=== PATIENT | female | born 1985 | race Caucasian/White ===

== ENCOUNTER 2018-08-24 09:05 | Emergency (ER) | payer OTHER ==
[~2018-08-24] VITALS: Ht 160 cm; Wt 90.0 kg
[~2018-08-24 09:05] MED LIST: CLIN300C85 PO; NO HOME MEDS; azythromycin PO
[2018-08-24 09:07] VITALS: BP 153/82
[2018-08-24] MEDS ORDERED: NAPR-56 PO (09:24)
[2018-08-24] MEDS ORDERED: PENI250T2 PO (09:24)
== END 2018-08-24 09:40 | disposition home or self-care (01) ==
LOC: ER 09:06
DX: K08.89 Other specified disorders of teeth and supporting structures (principal); F12.90 Cannabis use, unspecified, uncomplicated; Z79.2 Long term (current) use of antibiotics
CPT/HCPCS: 99283

== ENCOUNTER 2018-09-13 04:06 | Emergency (ER) | payer OTHER ==
[~2018-09-13] VITALS: Ht 160 cm; Wt 86.2 kg
[~2018-09-13 04:06] MED LIST changes: +NAPR-56 PO
[2018-09-13 04:11] VITALS: BP 149/94
[2018-09-13] MEDS ORDERED: HYDROcodone/acetaminophen 10/325mg tab PO ONE (04:30)
[2018-09-13] MEDS ORDERED: ibuprofen tablet 400 MG TABLET PO ONE (04:30)
[2018-09-13] MEDS ORDERED: IBUP-1986 PO (04:33)
[2018-09-13] MEDS ORDERED: HYDR-4383 PO (04:33)
== END 2018-09-13 04:43 | disposition home or self-care (01) ==
LOC: ER 04:07
DX: M62.838 Other muscle spasm (principal); M25.512 Pain in left shoulder; F12.90 Cannabis use, unspecified, uncomplicated; Z98.890 Other specified postprocedural states; Z79.899 Other long term (current) drug therapy
CPT/HCPCS: 99283

== ENCOUNTER 2019-11-11 10:06 | Emergency (ER) | payer OTHER ==
[~2019-11-11] VITALS: Ht 160 cm; Wt 85.4 kg
[~2019-11-11 10:06] MED LIST changes: +CLIN-90 PO; -CLIN300C85 PO; +HYDR-4383 PO; +IBUP-1986 PO; -NAPR-56 PO
[2019-11-11] MEDS ORDERED: IBUP-1984 PO (10:56)
[2019-11-11] MEDS ORDERED: PENI500T2 PO (10:56)
[2019-11-11 11:07] VITALS: BP 129/71
[2019-11-12] MEDS ORDERED: HYDR-4383 PO (16:30)
== END 2019-11-11 11:08 | disposition home or self-care (01) ==
LOC: ER 10:06
DX: K05.319 Chronic periodontitis, localized, unspecified severity (principal); F12.90 Cannabis use, unspecified, uncomplicated; Z98.890 Other specified postprocedural states; Z79.899 Other long term (current) drug therapy; Z79.2 Long term (current) use of antibiotics
CPT/HCPCS: 99283

== ENCOUNTER 2019-11-12 13:17 | Emergency (ER) | payer OTHER ==
[~2019-11-12] VITALS: Ht 165.1 cm; Wt 85.0 kg
[~2019-11-12 13:17] MED LIST changes: +IBUP-1984 PO; +PENI500T2 PO
[2019-11-12] MEDS ORDERED: morphine 4 MG/ML inj SYRINge IV ONE (14:15)
[2019-11-12] MEDS ORDERED: normal saline 1000ML IV soln IVB ONE (14:45)
[2019-11-12 14:52] LABS: BASOPHILS % (AUTO) 0.3 % (0-1); EOSINOPHILS # (AUTO) 0.1 X10'3 (0-0.9); HEMATOCRIT 39.8 % (35.0-45.0); HEMOGLOBIN 13.6 g/dl (12.0-16.0); LYMPHOCYTES # (AUTO) 1.4 X10'3 (1.1-4.8); LYMPHOCYTES % (AUTO) 12.1 % (21-51); MEAN CORPUSCULAR HEMOGLOBIN 30.5 PG (27.0-31.0); MEAN CORPUSCULAR HGB CONC 34.1 g/dL (33.0-36.5); MEAN CORPUSCULAR VOLUME 89.4 FL (78-98); MEAN PLATELET VOLUME 8.4 FL (7.4-10.4); MONOCYTES # (AUTO) 0.6 X10'3 (0-0.9); MONOCYTES % (AUTO) 5.5 % (2-12); NEUTROPHILS # (AUTO) 9.2 X10'3 (1.8-7.7); NEUTROPHILS % (AUTO) 81.1 % (42-75); PLATELET COUNT 264 X10'3 (140-440); RED BLOOD COUNT 4.45 X10'6 (4.20-5.60); RED CELL DISTRIBUTION WIDTH 13.3 % (11.5-14.5); WHITE BLOOD COUNT 11.3 X10'3 (4.5-11.0)
[2019-11-12] MEDS ORDERED: clindamycin 300mg/D5W 50mL 50 ML IV ONE (14:55)
[2019-11-12 15:08] LABS: ALANINE AMINOTRANSFERASE 23 U/L (12-78); ALBUMIN 3.9 G/DL (3.4-5.0); ALKALINE PHOSPHATASE 58 IU/L (46-116); ANION GAP 9 (8-16); ASPARTATE AMINO TRANSFERASE 14 U/L (10-37); BILIRUBIN,TOTAL 0.5 MG/DL (0.1-1.0); BLOOD UREA NITROGEN 6 MG/DL (7-18); BUN/CREATININE RATIO 8.6 (6.6-38.0); CALCIUM 8.7 MG/DL (8.5-10.1); CHLORIDE 108 MMOL/L (99-107); GLUCOSE 89 MG/DL (70-104); SODIUM 142 MMOL/L (135-145); TOTAL CARBON DIOXIDE 25.5 MMOL/L (24-32); TOTAL PROTEIN 7.7 G/DL (6.4-8.2); eGFR > 90 ML/MIN
[2019-11-12] MEDS ORDERED: iohexol 300mg/ml 100ml inj. ONE (15:28)
[2019-11-12] MEDS ORDERED: methylPREDNISolone sod succ 125mg/2ml vial IV ONE (16:00)
[2019-11-12] MEDS ORDERED: HYDR-4383 PO (16:30)
--- NOTE | 2019-11-12 16:53 | NUR ---
PT ABLE TO DRINK JUICE WITH OUT PAIN. PT ABLE TO EAT 2 CRACKERS SHE STATES IT HURTS TO CHEW. INSTRUCTED PT TO EAT SOFT FOODS AND SOUP SHE STATES UNDERSTANDING. PT STATES PAIN AND SWELLING ARE IMPROVED.
[2019-11-12 16:55] VITALS: BP 112/81
[2019-11-12] MEDS ORDERED: clindamycin 300mg/D5W 50mL 50 ML IV SCH (20:00)
== END 2019-11-12 17:10 | disposition home or self-care (01) ==
LOC: ER 13:18
DX: K04.7 Periapical abscess without sinus (principal); F12.90 Cannabis use, unspecified, uncomplicated; F10.99 Alcohol use, unspecified with unspecified alcohol-induced disorder; Z98.890 Other specified postprocedural states; Z79.899 Other long term (current) drug therapy; Y90.9 Presence of alcohol in blood, level not specified
CPT/HCPCS: 36415; 70491; 80053; 85025; 85610; 96365; 96375; 99284; J2270; J2930; J7030; Q9967; J3490

== ENCOUNTER 2020-08-07 19:39 | Emergency (ER) | payer OTHER ==
[~2020-08-07] VITALS: Ht 160 cm; Wt 81.8 kg
[~2020-08-07 19:39] MED LIST changes: -CLIN-90 PO; +CLIN-97 PO; -IBUP-1984 PO; -PENI500T2 PO
[2020-08-07 19:40] VITALS: BP 132/68
[2020-08-07] MEDS ORDERED: ketorolac tromethamine 15mg/ml inj. IM ONE (20:45)
--- NOTE | 2020-08-07 20:57 | NUR ---
pt to xray via wheelchair
== END 2020-08-07 21:41 | disposition home or self-care (01) ==
LOC: ER 19:41
DX: S80.911A Unspecified superficial injury of right knee, initial encounter (principal); F12.90 Cannabis use, unspecified, uncomplicated; Z98.890 Other specified postprocedural states; Z79.2 Long term (current) use of antibiotics; Z79.899 Other long term (current) drug therapy; X58.XXXA Exposure to other specified factors, initial encounter; Y93.89 Activity, other specified; Y92.89 Other specified places as the place of occurrence of the external cause; Y99.8 Other external cause status
CPT/HCPCS: 73564; 96372; 99283; J1885

== ENCOUNTER → 2020-12-23 | Emergency (ER) | payer OTHER ==
[~2020-12-23] VITALS: Ht 160 cm; Wt 82.7 kg
[~2020-12-23] MED LIST changes: +PENI250T2 PO; +[UNRECOGNIZED DRUG - CODE] PO
[2020-12-23 13:09] VITALS: BP 155/102
== END | disposition home or self-care (01) ==
LOC: ER 12:51
DX: K04.7 Periapical abscess without sinus (principal); F12.90 Cannabis use, unspecified, uncomplicated; Z72.89 Other problems related to lifestyle; Z98.890 Other specified postprocedural states; Z79.899 Other long term (current) drug therapy
CPT/HCPCS: 99283

== ENCOUNTER 2020-12-24 19:18 | Emergency (ER) | payer OTHER ==
[~2020-12-24] VITALS: Ht 160 cm; Wt 81.8 kg
[~2020-12-24 19:18] MED LIST changes: -[UNRECOGNIZED DRUG - CODE] PO
[2020-12-24 19:24] VITALS: BP 176/90
[2020-12-24] MEDS ORDERED: dexamethasone sod phosphate 10mg/ml inj IM STA (19:52)
[2020-12-24] MEDS ORDERED: clindamycin 150mg capsule PO ONE (19:55)
[2020-12-24] MEDS ORDERED: [UNRECOGNIZED DRUG - CODE] PO (19:55)
== END 2020-12-24 20:15 | disposition home or self-care (01) ==
LOC: ER 19:19
DX: L03.211 Cellulitis of face (principal); F12.90 Cannabis use, unspecified, uncomplicated; Z72.89 Other problems related to lifestyle; Z98.890 Other specified postprocedural states; Z79.899 Other long term (current) drug therapy
CPT/HCPCS: 96372; 99283; J1100

== ENCOUNTER 2021-09-27 16:39 | Emergency (ER) | payer OTHER ==
[~2021-09-27] VITALS: Ht 160 cm; Wt 72.7 kg
[~2021-09-27 16:39] MED LIST changes: -PENI250T2 PO
[2021-09-27 16:53] VITALS: BP 152/103
[2021-09-27] MEDS ORDERED: morphine 4 MG/ML inj SYRINge IM ONE (17:15)
[2021-09-27] MEDS ORDERED: ketorolac tromethamine 15mg/ml inj. IM ONE (17:15)
[2021-09-27] MEDS ORDERED: ondansetron 4mg rapidly disintigrating tab PO ONE (17:15)
[2021-09-27] MEDS ORDERED: ORPH100T2 PO (18:04)
[2021-09-27] MEDS ORDERED: IBUP-1984 PO (18:04)
[2021-09-27] MEDS ORDERED: DIAZ5TAB22 PO (18:04)
== END 2021-09-27 18:59 | disposition home or self-care (01) ==
LOC: ER 16:40
DX: M25.511 Pain in right shoulder (principal); M54.2 Cervicalgia; F12.90 Cannabis use, unspecified, uncomplicated; Z98.890 Other specified postprocedural states; Z72.89 Other problems related to lifestyle; Z88.0 Allergy status to penicillin; Z91.030 Bee allergy status; Z79.2 Long term (current) use of antibiotics; Z79.899 Other long term (current) drug therapy
CPT/HCPCS: 72125; 73030; 96372; 99284; J1885; J2270

== ENCOUNTER 2022-09-11 17:22 | Emergency (ER) | payer OTHER ==
[~2022-09-11] VITALS: Ht 160 cm; Wt 77.4 kg
[~2022-09-11 17:22] MED LIST changes: +ORPH100T2 PO
[2022-09-11 17:40] VITALS: BP 133/94
[2022-09-11 18:53] LABS: BASOPHILS % (AUTO) 0.5 % (0-1); EOSINOPHILS # (AUTO) 0.1 X10'3 (0-0.9); EOSINOPHILS % (AUTO) 1.4 % (0-6); HEMATOCRIT 39.9 % (35.0-45.0); HEMOGLOBIN 13.5 g/dl (12.0-16.0); LYMPHOCYTES # (AUTO) 2.1 X10'3 (1.1-4.8); LYMPHOCYTES % (AUTO) 21.6 % (21-51); MEAN CORPUSCULAR HEMOGLOBIN 30.9 PG (27.0-31.0); MEAN CORPUSCULAR HGB CONC 33.8 g/dL (33.0-36.5); MEAN CORPUSCULAR VOLUME 91.4 FL (78-98); MEAN PLATELET VOLUME 8.3 FL (7.4-10.4); MONOCYTES # (AUTO) 0.6 X10'3 (0-0.9); MONOCYTES % (AUTO) 6.5 % (2-12); NEUTROPHILS # (AUTO) 6.7 X10'3 (1.8-7.7); PLATELET COUNT 234 X10'3 (140-440); RED BLOOD COUNT 4.37 X10'6 (4.20-5.60); RED CELL DISTRIBUTION WIDTH 13.3 % (11.5-14.5); WHITE BLOOD COUNT 9.5 X10'3 (4.5-11.0)
[2022-09-11 19:05] LABS: HCG SERUM QL NEGATIVE
[2022-09-11 19:08] LABS: ALANINE AMINOTRANSFERASE 20 U/L (12-78); ALBUMIN 3.7 G/DL (3.4-5.0); ALBUMIN/GLOBULIN RATIO 1.1 (1.1-1.5); ALKALINE PHOSPHATASE 56 IU/L (46-116); ANION GAP 8 (8-16); ASPARTATE AMINO TRANSFERASE 18 U/L (10-37); BILIRUBIN,TOTAL 0.3 MG/DL (0.1-1.0); BLOOD UREA NITROGEN 17 MG/DL (7-18); BUN/CREATININE RATIO 22.7 (6.6-38.0); CHLORIDE 106 MMOL/L (99-107); CREATININE 0.75 MG/DL (0.40-0.90); GLUCOSE 87 MG/DL (70-104); SODIUM 142 MMOL/L (135-145); TOTAL PROTEIN 7.1 G/DL (6.4-8.2); eGFR 88 ML/MIN
[2022-09-11] MEDS ORDERED: orphenadrine citrate 60mg/2ml inj. IM ONE (20:20)
[2022-09-11] MEDS ORDERED: oxyCODONE/APAP 5-325mg tablet PO ONE (20:20)
[2022-09-11] MEDS ORDERED: ketorolac trometh inj. 60 MG/2 ML VIAL IM ONE (20:20)
[2022-09-11] MEDS ORDERED: OXYC-145 PO (20:38)
[2022-09-11] MEDS ORDERED: NAPR-56 PO (20:39)
[2022-09-11] MEDS ORDERED: ORPH100T2 PO (20:39)
[2022-09-11] MEDS ORDERED: LIDO700A32 TOP (20:39)
[2022-09-11] MEDS ORDERED: ONDA4TAB12 PO (20:39)
--- NOTE | 2022-09-11 21:25 | NUR ---
PT EDUCATED ON INCENTIVE SPIROMETER
== END 2022-09-11 21:26 | disposition home or self-care (01) ==
LOC: ER 17:23
DX: S20.219A Contusion of unspecified front wall of thorax, initial encounter (principal); S00.83XA Contusion of other part of head, initial encounter; M25.512 Pain in left shoulder; F12.90 Cannabis use, unspecified, uncomplicated; Z98.890 Other specified postprocedural states; Z72.89 Other problems related to lifestyle; Z88.0 Allergy status to penicillin; Z91.030 Bee allergy status; Z79.2 Long term (current) use of antibiotics; Z79.899 Other long term (current) drug therapy; V80.010A Animal-rider injured by fall from or being thrown from horse in noncollision accident, initial encounter; Y93.89 Activity, other specified; Y92.89 Other specified places as the place of occurrence of the external cause; Y99.8 Other external cause status
CPT/HCPCS: 36415; 70450; 71250; 72125; 73000; 80053; 84703; 85025; 96372; 99285; J1885; J2360; A4565

== ENCOUNTER 2023-12-17 11:31 | Emergency (ER) | payer OTHER, MEDICAID ==
[~2023-12-17] VITALS: Ht 167.6 cm; Wt 85.7 kg
[~2023-12-17 11:31] MED LIST changes: +LIDO700A32 TOP; +ONDA4TAB12 PO; -ORPH100T2 PO; +ORPH100T4 PO; +OXYC-145 PO
[2023-12-17 12:12] VITALS: BP 155/98; PULSE 109; RESP 20; TEMP 97.8; O2SAT 100
== END 2023-12-17 13:40 | disposition home or self-care (01) ==
LOC: ER 11:31
DX: S90.31XA Contusion of right foot, initial encounter (principal); R22.41 Localized swelling, mass and lump, right lower limb; F12.90 Cannabis use, unspecified, uncomplicated; Z72.89 Other problems related to lifestyle; Z98.891 History of uterine scar from previous surgery; Z79.899 Other long term (current) drug therapy; Z79.2 Long term (current) use of antibiotics; Z88.0 Allergy status to penicillin; Z91.030 Bee allergy status; Z91.048 Other nonmedicinal substance allergy status; X58.XXXA Exposure to other specified factors, initial encounter; Y93.89 Activity, other specified; Y92.89 Other specified places as the place of occurrence of the external cause; Y99.8 Other external cause status
CPT/HCPCS: 73630; 99283